=== PATIENT | female | born 1985 | race African-American/Black ===

== ENCOUNTER 2018-11-28 12:53 | Inpatient (IN) | payer MEDICAID ==
[~2018-11-28] VITALS: Ht 172.7 cm; Wt 68.9 kg
[2018-11-28] MEDS ORDERED: SODIUM CHLORIDE 0.9% 1,000 ML IV ONE (13:16)
[2018-11-28 13:52] LABS: MEAN CORPUSCULAR HEMOGLOBIN 13.5 pg (28.0-32.0); MEAN PLATELET VOLUME 8.6 fl (7.4-10.4); PLATELET 339 x1000/uL (130-400); RED BLOOD CELL COUNT 1.89 mill/uL (4.2-5.4); RED CELL DISTRIBUTION WIDTH 23.1 % (11.6-14.6)
[2018-11-28 13:57] LABS: CHLORIDE 103 mEq/L (98-107); HCG SCREEN NEGATIVE
[2018-11-28 13:59] LABS: PROTHROMBIN TIME 10.3 sec (9.6-11.0)
[2018-11-28 14:05] LABS: HEMATOCRIT. 10.2 % (36.0-48.0); HEMOGLOBIN. 2.6 g/dL (12.0-16.0)
[2018-11-28 15:33] LABS: PLATELET ESTIMATE NORMAL
[2018-11-28 19:30] VITALS: BP 121/61
[2018-11-28 20:00] VITALS: BP_SYST 110; BP_SYST 121; BP_DIAS 60; BP_DIAS 61
[2018-11-28] MEDS ORDERED: DOCUSATE SODIUM 100MG CAPSULE PO PRN (20:15)
[2018-11-28] MEDS ORDERED: CLONIDINE 0.1MG TABLET PO PRN (20:15)
[2018-11-28] MEDS ORDERED: MAGNESIUM/ALUMINUM HYDROXIDE/SIMETHICONE 30ML UDC PO PRN (20:15)
[2018-11-28] MEDS ORDERED: ONDANSETRON HCL 4MG/2ML INJ IV PRN (20:15)
[2018-11-28] MEDS ORDERED: GUAIFENESIN 200MG/10ML SUGAR FREE UDC PO PRN (20:15)
[2018-11-28] MEDS ORDERED: ACETAMINOPHEN 325MG TABLET PO PRN (20:15)
[2018-11-28 20:30] VITALS: BP 110/60
[2018-11-28] MEDS ORDERED: PNEUMOCOCCAL 23-VAL P-SAC VAC 0.5 ML IM ONE (23:15)
[2018-11-29] VITALS (13 sets, daily range): BP systolic 96–117; BP diastolic 54–74
[2018-11-29 04:02] LABS: HEMOGLOBIN 4.2 g/dL (12.0-16.0); TOTAL IRON BINDING CAPACITY 474 ug/dL (250-450)
[2018-11-29 04:03] LABS: CREATINE KINASE 39 IU/L (26-192)
[2018-11-29 04:04] LABS: CREATINE KINASE MB FRACTION < 1.0 ng/mL (0.5-3.6)
[2018-11-29 04:40] LABS: CLARITY URINE CLEAR (CLEAR); COLOR URINE YELLOW (YELLOW); KETONES URINE NEGATIVE (NEGATIVE); LEUKOCYTE ESTERASE URINE TRACE (NEGATIVE); NITRITE URINE NEGATIVE (NEGATIVE); OCCULT BLOOD URINE 3+ (NEGATIVE); PROTEIN URINE NEGATIVE (NEGATIVE); SPECIFIC GRAVITY URINE 1.019 (1.005-1.030)
[2018-11-29 05:31] LABS: *BARBITURATES SCREEN URINE NEGATIVE (NEGATIVE); *BENZODIAZEPINES SCREEN URINE NEGATIVE (NEGATIVE); *COCAINE SCREEN URINE NEGATIVE (NEGATIVE); METHADONE URINE SCREEN NEGATIVE (NEGATIVE); OPIATES URINE SCREEN NEGATIVE (NEGATIVE)
[2018-11-29 05:32] LABS: PHENCYCLIDINE URINE SCREEN NEGATIVE (NEGATIVE)
[2018-11-29 05:36] LABS: *AMPHETAMINES SCREEN URINE PRESUMTIVE POSITIVE (NEGATIVE); CANNABINOID URINE SCREEN PRESUMTIVE POSITIVE (NEGATIVE)
[2018-11-29 06:41] LABS: BASOPHILS % 0.8 % (0.0-2.0); CHLORIDE 107 mEq/L (98-107); EOSINOPHILS % 0.5 % (0.0-5.0); LYMPHOCYTES % 20.2 % (20.0-50.0); MEAN CORPUSCULAR HEMOGLOBIN 18.4 pg (28.0-32.0); MEAN CORPUSCULAR VOLUME 62.1 fL (81.0-99.0); MEAN PLATELET VOLUME 9.2 fl (7.4-10.4); MONOCYTES % 7.6 % (2.0-8.0); NEUTROPHILS % 70.9 % (40.0-76.0); PLATELET 304 x1000/uL (130-400); RED BLOOD CELL COUNT 2.21 mill/uL (4.2-5.4); RED CELL DISTRIBUTION WIDTH 31.4 % (11.6-14.6)
[2018-11-29 06:50] LABS: HEMOGLOBIN. 4.1 g/dL (12.0-16.0)
[2018-11-29 06:51] LABS: HEMATOCRIT. 13.8 % (36.0-48.0)
[2018-11-29 06:54] LABS: HDL CHOLESTEROL 32 mg/dL (40-59)
[2018-11-29 06:55] LABS: LDL CHOLESTEROL 64 mg/dL (5-100)
[2018-11-29 06:56] LABS: CREATINE KINASE 34 IU/L (26-192)
[2018-11-29 06:59] LABS: CREATINE KINASE MB FRACTION < 1.0 ng/mL (0.5-3.6)
[2018-11-29] MEDS: FERROUS SULFATE 325MG TABLET PO SCH ×3 (09:00→18:30)
[2018-11-29 17:09] LABS: MEAN CORPUSCULAR HEMOGLOBIN 21.9 pg (28.0-32.0); PLATELET 301 x1000/uL (130-400); RED BLOOD CELL COUNT 3.15 mill/uL (4.2-5.4); RED CELL DISTRIBUTION WIDTH 32.3 % (11.6-14.6)
[2018-11-29 17:15] LABS: HEMOGLOBIN 6.9 g/dL (12.0-16.0)
[2018-11-30] VITALS (9 sets, daily range): BP systolic 104–121; BP diastolic 52–72
[2018-11-30 05:18] LABS: HEMATOCRIT. 25.3 % (36.0-48.0); HEMOGLOBIN. 8.1 g/dL (12.0-16.0); MEAN CORPUSCULAR HEMOGLOBIN 23.3 pg (28.0-32.0); MEAN CORPUSCULAR VOLUME 72.9 fL (81.0-99.0); MEAN PLATELET VOLUME 8.8 fl (7.4-10.4); PLATELET 294 x1000/uL (130-400); RED BLOOD CELL COUNT 3.47 mill/uL (4.2-5.4); RED CELL DISTRIBUTION WIDTH 29.9 % (11.6-14.6)
[2018-11-30 05:46] LABS: CHLORIDE 109 mEq/L (98-107)
[2018-11-30] MEDS: FERROUS SULFATE 325MG TABLET PO SCH ×2 (09:04→13:00)
[2018-11-30] MEDS ORDERED: MEDROXYPROGESTERONE ACETATE 150MG/ML VIAL IM NR (09:15)
[2018-11-30 19:49] LABS: NUCLEATED RED BLOOD CELLS 6 /100 WBC; PLATELET ESTIMATE NORMAL
== END 2018-11-30 13:45 | disposition home or self-care (01) | DRG 532 ==
LOC: ER 12:53 → 7WST 15:20 → ENRESERV 17:33
PROVIDERS: ADMIT Internal Medicine; ATTEND Internal Medicine
PROC: 30233N1 Transfusion of Nonautologous Red Blood Cells into Peripheral Vein, Percutaneous Approach (ICD-10-PCS; principal; 2018-11-28)
DX: N92.0 Excessive and frequent menstruation with regular cycle (principal); S09.90XA Unspecified injury of head, initial encounter; D21.9 Benign neoplasm of connective and other soft tissue, unspecified; D50.9 Iron deficiency anemia, unspecified; F12.90 Cannabis use, unspecified, uncomplicated; F15.90 Other stimulant use, unspecified, uncomplicated; W18.39XA Other fall on same level, initial encounter; Y93.89 Activity, other specified; Y92.89 Other specified places as the place of occurrence of the external cause; Y99.8 Other external cause status
CPT/HCPCS: 36415; 71045; 76856; 80048; 80061; 80305; 82550; 82553; 82728; 83540; 83550; 84443; 84484; 84703; 85014; 85018; 85027; 85044; 86850; 86900; 86920; 93005; 93880; 99291; J1050; J7030; J7050; P9016

== ENCOUNTER 2018-12-03 06:16 | Emergency (ER) | payer MEDICAID ==
[~2018-12-03] VITALS: Ht 162.6 cm; Wt 74.6 kg
[2018-12-03 07:39] VITALS: BP 125/75
== END 2018-12-03 07:40 | disposition home or self-care (01) ==
LOC: ER 06:16
DX: G56.22 Lesion of ulnar nerve, left upper limb (principal); R20.2 Paresthesia of skin; F12.10 Cannabis abuse, uncomplicated
CPT/HCPCS: 99283

== ENCOUNTER 2019-02-19 12:04 | Emergency (ER) | payer MEDICAID ==
[~2019-02-19] VITALS: Ht 162.6 cm; Wt 66.0 kg
[2019-02-19] MEDS ORDERED: SODIUM CHLORIDE 0.9% 1,000 ML IV ONE (12:28)
[2019-02-19] MEDS ORDERED: KETOROLAC 30MG/ML VIAL IV ONE (12:30)
[2019-02-19] MEDS ORDERED: ONDANSETRON HCL 4MG/2ML INJ IV ONE (12:30)
[2019-02-19 12:59] LABS: BASOPHILS % 0.4 % (0.0-2.0); EOSINOPHILS % 0.1 % (0.0-5.0); HEMATOCRIT. 27.9 % (36.0-48.0); HEMOGLOBIN. 8.1 g/dL (12.0-16.0); LYMPHOCYTES % 20.9 % (20.0-50.0); MEAN CORPUSCULAR HEMOGLOBIN 18.7 pg (28.0-32.0); MEAN CORPUSCULAR VOLUME 64.4 fL (81.0-99.0); MONOCYTES % 6.7 % (2.0-8.0); NEUTROPHILS % 71.9 % (40.0-76.0); RED BLOOD CELL COUNT 4.33 mill/uL (4.2-5.4); RED CELL DISTRIBUTION WIDTH 20.2 % (11.6-14.6)
[2019-02-19 13:05] LABS: CHLORIDE 105 mEq/L (98-107)
[2019-02-19 13:16] LABS: B-HCG QUANTITATIVE < 1 mIU/mL (<3)
[2019-02-19 14:07] LABS: PLATELET ESTIMATE NORMAL
[2019-02-19 14:12] LABS: MEAN PLATELET VOLUME 9.3 fl (7.4-10.4); PLATELET 155 x1000/uL (130-400)
[2019-02-19 14:32] VITALS: BP 104/55
== END 2019-02-19 14:32 | disposition home or self-care (01) ==
LOC: ER 12:04
DX: N93.9 Abnormal uterine and vaginal bleeding, unspecified (principal)
CPT/HCPCS: 36415; 76856; 80053; 84702; 85025; 86850; 86900; 86901; 96361; 96374; 96375; 99284; J1885; J2405; J7030